=== PATIENT | male | born 1955 | race Caucasian/White ===

== ENCOUNTER → 2018-01-31 08:01 | Outpatient (CLI) | payer OTHER, SELFPAY ==
[2018-01-31 12:04] LABS: Absolute Lymphocyte Count 2.43 X10^3/ul (0.83-4.51); Absolute Neutrophil Count 2.2 X10^3/uL (2.0-7.7); Basophil# 0.01 X10^3/uL; Basophil% 0.2 % (0-1); Eosinophil# 0.07 X10^3/uL; Eosinophils% 1.4 % (0-5); Hematocrit 42.7 % (40-54); Hemoglobin 14.1 g/dl (13.0-16.5); Lymphocyte # 2.43 X10^3/ul (4.0); Lymphocyte % 47.3 % (19-41); Mean Corpuscular Volume 90.9 fL (80-94); Mean Platelet Vol. 9.2 fl (6.2-12.0); Monocyte# 0.42 X10^3/uL; Monocyte% 8.2 % (0-10); Neutrophil % 42.7 % (47-70); POSITIVE COUNT NO; POSITIVE DIFFERENTIAL NO; POSITIVE MORPHOLOGY NO; Platelet Count 200 K/mm3 (150-450); RBC Distribution Width SD 46.6 fl (35.1-43.9); White Blood Count 5.1 K/mm3 (4.4-11.0)
[2018-01-31 12:20] LABS: Prothrombin Time (Protime)PT. 22.8 SECONDS (11.7-14.9)
[2018-01-31 12:29] LABS: ALB/GLOB Ratio 1.1 RATIO (0.9-2.4); AST(SGOT) 23 U/L (15-37); Alanine Aminotransfer ALT/SGPT 33 U/L (16-61); Alkaline Phosphatase 59 U/L (45-117); Anion Gap 7 (5-15); BUN 13 mg/dL (7-18); BUN/Creat Ratio 14.4 RATIO (10-20); Calcium,Total 8.8 mg/dL (8.5-10.1); Chloride 106 mmol/L (98-107); Cholesterol 187 mg/dL (200); EST Glomerular Filtration Rate 90 mL/min (>60); Est Glom Filt Rate - Afr Amer 109 mL/min (>60); Globulin 3.8 g/dL (2.2-4.2); Glucose 91 mg/dL (74-106); High Density Lipoprotein 51 mg/dL; Potassium 4.2 mmol/L (3.5-5.1); Protein, Total 7.8 g/dL (6.4-8.2); Sodium Level 140 mmol/L (136-145); Triglycerides 104 mg/dL; Very Low Density Lipoprotein 21 mg/dL (5-40)
== END ==
PROVIDERS: Family Provider Family Medicine; PCP Family Medicine; Visit Provider Family Medicine
DX: M77.00 Medial epicondylitis, unspecified elbow (principal); Z51.81 Encounter for therapeutic drug level monitoring; Z86.73 Personal history of transient ischemic attack (TIA), and cerebral infarction without residual deficits
CPT/HCPCS: 36415; 80053; 80061; 85025; 85610

== ENCOUNTER → 2018-04-05 09:47 | Outpatient (CLI) | payer OTHER, SELFPAY ==
--- NOTE | 2018-04-03 09:31 | LES_PTH ---
PATIENT: ALMA ROSA CRUZ LOC: [facility] U#:[id number] AGE/SX: 70/M ROOM: RE04/05/[address]: Dr. Kun Pulido DO : 1955 BED: DIS: SPEC #: [id number] RECD: 04/05/18 12:19 STATUS: PEBBLES RADHA #: [id number] LORI: 04/03/18 09:[address]: Kun Pulido DEPT: SURGICAL PATHOLOGY RECD BY: Chong Mccarthy Tissues: Skin, NOS Procedures: Surgery Specimen Level IV HEADER OPERATION: Punch biopsy PRE-OP DIAGNOSIS: Large flat pigmented lesion TISSUE SUBMITTED: 3 mm punch biopsy MICROSCOPIC DIAGNOSIS Right leg, punch biopsy: Consistent with seborrheic keratosis. Negative for melanocytic lesion. SJ:vilma 04/06/18 COMMENT Clinical correlation and appropriate follow up are necessary. MICROSCOPIC DESCRIPTION Slides are reviewed. GROSS DESCRIPTION Received in fixative is one container labeled with the patient's name and designated biopsy right leg. The specimen consists of a punch biopsy of patrick-white skin measuring 0.2 cm in diameter and 0.2 cm in length. The specimen is totally submitted in one cassette. / SJ:vilma 04/05/18 TC:1 CPT: 17230
[2018-04-05 12:25] LABS: Color, Urine Yellow (Yellow); Glucose, Dipstick Normal (Normal); Ketone-Dipstick Negative (Negative); Leukocyte Esterase-Dipstick Negative /ul (Negative); Nitrite-Dipstick Negative (Negative); Occult Blood-Urine Negative /ul (Negative); Protein-Dipstick Negative (Negative); Specific Gravity, Urine 1.005 (1.002-1.030); Urine Bilirubin Dipstick Negative (Negative); Urine Clarity Sl. Cloudy (Clear); Urine Urobilinogen Normal (Normal)
[2018-04-05 12:34] LABS: Erythrocyte Sedimentation Rate 7 mm/hr (0-20)
[2018-04-05 12:37] LABS: CPK Total, Creatine Kinase 144 U/L (39-308); CRP < 2.90 mg/L (0.0-3.0)
[2018-04-10 11:36] LABS: Testosterone, % Free 2.71 % (1.50-4.20); Testosterone, Free 11.79 ng/dL (5.00-21.00)
[2018-04-10 15:28] LABS: Hep C Antibodies <0.1 s/co ratio (0.0-0.9); Testosterone, Total 435 ng/dL (264-916)
== END ==
PROVIDERS: Visit Provider Family Medicine
DX: M79.1 Myalgia (principal); R30.0 Dysuria; R53.83 Other fatigue; L98.9 Disorder of the skin and subcutaneous tissue, unspecified
CPT/HCPCS: 36415; 81002; 82550; 84402; 84403; 85652; 86140; 86803; 87086; 87088; 88305

== ENCOUNTER 2018-07-13 06:26 | Day surgery (SDC) | payer OTHER, SELFPAY ==
[2018-07-13] VITALS (7 sets, daily range): BP systolic 103–136; BP diastolic 69–93; PULSE 61–81; RESP 16; TEMP 36–36.4; O2SAT 94–100; BMI 26.3
--- NOTE | 2018-07-13 07:47 | PCM.HP.STD ---
Problem List (1) Screening for intestinal cancer Status: Acute History of Present Illness Date of Admission: 07/13/18 The patient is a 63 year old M screening for intestinal cancer. He denies any abdominal pain. No bright red blood per rectum or melena. His previous colonoscopy was 14 years prior. He has no family history of colon cancer. 20 years ago he had a stroke. Claims he has been on Coumadin ever since. He has held his Coumadin now for 5 days. Past Medical History Allergies No Known Allergies Allergy (Verified 07/11/18 09:44) Home Medications: Ambulatory Orders Medication Instructions Recorded Temazepam [Restoril] 30 mg PO QHS 07/11/18 Warfarin Sodium [Coumadin] 8 mg PO MOWEFR 07/11/18 Warfarin [Coumadin ([facility])] 6 mg PO SUTUTHSA 07/11/18 traZODone [Desyrel] 50 mg PO QHS 07/11/18 Smoking Status: Never smoker Review of Systems Constitutional: Denies: Anorexia HEENT: Denies: Difficulty Swallowing Cardiovascular: Denies: Chest Pain Respiratory: Denies: Cough Gastrointestinal: Denies: Abdominal Pain, Hematochezia, Melena Psychiatric: Denies: Anxiety Endocrine: Denies: Change in Body Habitus VTE Information - Inpt Only VTE Present on Admission: No Patient Problems: Active and Suspected Problems Screening for intestinal cancer (Acute) - Physical Exam General: Alert, Oriented x3, Cooperative, No apparent distress HEENT: Atraumatic Oral: Moist Mucosa Neck: Supple Lungs: Clear to auscultation Cardiovascular: Regular rate, Regular Rhythm Abdomen: Bowel Sounds Present, Soft, Non Tender Extremities: No Calf Tenderness Skin: No rashes Musculoskeletal: No Tenderness to Palpation of Joints or Extremities Neurological: Cranial nerves II-XII grossly intact Psych/Mental Status: Normal Affect Vital Signs Temp Pulse Resp BP Pulse Ox 97.2 F L 78 16 125/84 H 96 07/13/18 06:47 07/13/18 06:47 07/13/18 06:47 07/13/18 06:47 07/13/18 06:47 Oxygen Delivery Method Room Air Weight: 167 lb 15.876 oz Body Mass Index (BMI) 26.3 Assessment/Plan All Active Problems Screening for intestinal cancer (Acute) Plan to proceed with a screening colonoscopy. The patient is aware of the technique, benefits, risks and alternatives. He has had an opportunity to ask and have questions answered. We will proceed at his discretion. Douglas Stern M.D., F.A.C.S.
--- NOTE | 2018-07-13 08:13 | OP.ENDO_ITS ---
Patient Name: Kris Pelitez Procedure Date: 07/13/2018 7:42 AM Date of : 1955 Age: 63 Procedure: Colonoscopy Indications: Screening for colorectal malignant neoplasm Providers: Douglas Stern MD Referring MD: Douglas Stern MD Medicines: Midazolam 3.5 mg IV, Meperidine 75 mg IV Patient Profile: This is a 63 year old male. Last Colonoscopy: more than 10 years ago. Complications: No immediate complications. Procedure: Pre-Anesthesia Assessment: - Prior to the procedure, a History and Physical was performed, and patient medications and allergies were reviewed. The patient's tolerance of previous anesthesia was also reviewed. The risks and benefits of the procedure and the sedation options and risks were discussed with the patient. All questions were answered, and informed consent was obtained. Prior Anticoagulants: The patient has taken Coumadin (warfarin), last dose was day of procedure. ASA Grade Assessment: II - A patient with mild systemic disease. After reviewing the risks and benefits, the patient was deemed in satisfactory condition to undergo the procedure. After I obtained informed consent, the scope was passed under direct vision. Throughout the procedure, the patient's blood pressure, pulse, and oxygen saturations were monitored continuously. The pediatric colonoscope was introduced through the anus and advanced to the cecum, identified by appendiceal orifice and ileocecal valve. The colonoscopy was performed without difficulty. The patient tolerated the procedure well. The quality of the bowel preparation was good. The ileocecal valve was photographed. Moderate Sedation: Moderate (conscious) sedation was personally administered by the endoscopist. The following parameters were monitored: oxygen saturation, heart rate, blood pressure, and response to care. Total physician intraservice time was 15 minutes. Scope In: 7:53:43 AM Scope Withdrawal Time 0 hours 7 minutes 6 seconds Scope Out: 8:06:42 AM Total Procedure Duration Time 0 hours 12 minutes 59 seconds Findings: The perianal and digital rectal examinations were normal. The colon (entire examined portion) appeared normal. Impression: - The entire examined colon is normal. - No specimens collected. Recommendation: - Discharge patient to home. - Resume previous diet. - Continue present medications. - Resume Coumadin (warfarin) at prior dose today. - Repeat colonoscopy in 10 years for screening purposes. Procedure Code(s): --- Professional --- 20631, Colonoscopy, flexible; diagnostic, including collection of specimen(s) by brushing or washing, when performed (separate procedure) 19831, 59, Moderate sedation services provided by the same physician or other qualified health career specialist performing the diagnostic or therapeutic service that the sedation supports, requiring the presence of an independent trained observer to assist in the monitoring of the patient's level of consciousness and physiological status; initial 15 minutes of intraservice time, patient age 5 years or older Diagnosis Code(s): --- Professional --- Z12.11, Encounter for screening for malignant neoplasm of colon CPT copyright 2017 [employer]. All rights reserved. The codes documented in this report are preliminary and upon ammonium hydroxide operator review may be revised to meet current compliance requirements. Douglas Stern MD 07/13/2018 8:12:42 AM This report has been signed electronically. Number of Addenda: 0 Note Initiated On: 07/13/2018 7:42 AM
== END 2018-07-13 09:17 | disposition home or self-care (01) ==
LOC: EN 06:27 → AC 06:29
PROVIDERS: Family Provider Family Medicine; PCP Family Medicine; Referring Provider Surgery; Visit Provider Surgery
PROC: 0DJD8ZZ Inspection of Lower Intestinal Tract, Via Natural or Artificial Opening Endoscopic (ICD-10-PCS; CPT 45378; principal; 2018-07-13 07:25)
DX: Z12.11 Encounter for screening for malignant neoplasm of colon (principal); Z86.73 Personal history of transient ischemic attack (TIA), and cerebral infarction without residual deficits; Z79.01 Long term (current) use of anticoagulants
CPT/HCPCS: 45378; 99152; 99153; J7120

== ENCOUNTER 2020-01-03 07:15 | Outpatient (RCR) | payer MEDICARE, OTHER, SELFPAY ==
[2018-07-13 06:47] VITALS: BMI 26.3
[2019-12-20 07:50] LABS: Prothrombin Time Fingerstick 22.1 SEC (11.9-14.4)
[2020-01-03 08:37] LABS: Prothrombin Time (Protime)PT. 22.1 SECONDS (11.7-14.9)
== END 2020-01-16 18:00 | disposition home or self-care (01) ==
LOC: LAB 07:15
PROVIDERS: PCP Family Medicine; Referring Provider Family Medicine; Visit Provider Family Medicine
DX: Z86.73 Personal history of transient ischemic attack (TIA), and cerebral infarction without residual deficits (principal)
CPT/HCPCS: 36415; 36416; 85610

== ENCOUNTER 2020-02-03 09:10 | Outpatient (RCR) | payer MEDICARE, OTHER, SELFPAY ==
[2018-07-13 06:47] VITALS: BMI 26.3
[2020-02-03 10:13] LABS: Prothrombin Time (Protime)PT. 22.6 SECONDS (11.7-14.9)
== END 2020-02-03 18:00 | disposition home or self-care (01) ==
LOC: LAB 09:10
PROVIDERS: PCP Family Medicine; Referring Provider Family Medicine; Visit Provider Family Medicine
DX: Z86.73 Personal history of transient ischemic attack (TIA), and cerebral infarction without residual deficits (principal)
CPT/HCPCS: 36415; 85610

== ENCOUNTER 2020-03-09 10:03 | Outpatient (RCR) | payer MEDICARE, OTHER, SELFPAY ==
[2018-07-13 06:47] VITALS: BMI 26.3
[2020-03-09 12:40] LABS: International Normalized Ratio 1.9; Prothrombin Time (Protime)PT. 21.3 SECONDS (11.7-14.9)
== END 2020-03-09 18:00 | disposition home or self-care (01) ==
LOC: LAB 10:03
PROVIDERS: PCP Family Medicine; Referring Provider Family Medicine; Visit Provider Family Medicine
DX: Z86.73 Personal history of transient ischemic attack (TIA), and cerebral infarction without residual deficits (principal)
CPT/HCPCS: 36415; 85610

== ENCOUNTER 2020-04-06 09:12 | Outpatient (RCR) | payer MEDICARE, OTHER, SELFPAY ==
[2018-07-13 06:47] VITALS: BMI 26.3
[2020-04-06 10:12] LABS: International Normalized Ratio 1.8; Prothrombin Time (Protime)PT. 20.8 SECONDS (11.7-14.9)
== END 2020-04-06 18:00 | disposition home or self-care (01) ==
LOC: MTLAB 09:12
PROVIDERS: PCP Family Medicine; Referring Provider Family Medicine; Visit Provider Family Medicine
DX: Z86.73 Personal history of transient ischemic attack (TIA), and cerebral infarction without residual deficits (principal)
CPT/HCPCS: 36415; 85610

== ENCOUNTER → 2020-04-30 08:44 | Outpatient (CLI) | payer MEDICARE, OTHER, SELFPAY ==
[2020-04-30 12:34] LABS: Absolute Lymphocyte Count 2.15 X10^3/uL (0.83-4.51); Absolute Neutrophil Count 2.7 X10^3/uL (2.0-7.7); Basophil# 0.03 X10^3/uL; Basophil% 0.5 % (0-1); Eosinophil# 0.08 X10^3/uL; Eosinophils% 1.4 % (0-5); Hematocrit 42.7 % (40-54); Hemoglobin 13.9 g/dL (13.0-16.5); Lymphocyte # 2.15 X10^3/ul (4.0); Lymphocyte % 38.7 % (19-41); Mean Corp Hgb Conc 32.6 g/dL (32-36); Mean Platelet Vol. 9.7 fl (6.2-12.0); Monocyte# 0.53 X10^3/uL; Monocyte% 9.5 % (0-10); NRBC Flagged by Analyzer 0 % (0-5); Neutrophil # 2.74 X10^3/uL (2.7-7.7); Neutrophil % 49.5 % (47-70); Platelet Count 219 K/mm3 (150-450); RBC Distribution Width CV 13.4 % (11.6-14.6); RBC Distribution Width SD 45.6 fl (35.1-43.9); Red Blood Count 4.64 M/mm3 (4.6-6.2); White Blood Count 5.6 K/mm3 (4.4-11.0)
[2020-04-30 12:38] LABS: International Normalized Ratio 2.3
[2020-04-30 12:47] LABS: AST(SGOT) 15 U/L (15-37); Alanine Aminotransfer ALT/SGPT 23 U/L (16-61); Albumin, Serum 3.8 g/dL (3.2-5.0); Alkaline Phosphatase 70 U/L (45-117); Anion Gap 4 (5-15); BUN 12 mg/dL (7-18); BUN/Creat Ratio 13.5 RATIO (10-20); Calcium,Total 9.2 mg/dL (8.5-10.1); Chloride 108 mmol/L (98-107); Cholesterol 175 mg/dL (200); Creatinine, Serum 0.89 mg/dL (0.70-1.30); EST Glomerular Filtration Rate 91 mL/min (>60); Est Glom Filt Rate - Afr Amer 110 mL/min (>60); Globulin 3.8 g/dL (2.2-4.2); Glucose 94 mg/dL (74-106); High Density Lipoprotein 52 mg/dL; PSA,Total - Annual Screen 0.46 ng/mL (0.00-4.00); Potassium 4.6 mmol/L (3.5-5.1); Protein, Total 7.6 g/dL (6.4-8.2); Sodium Level 140 mmol/L (136-145); Triglycerides 97 mg/dL; Very Low Density Lipoprotein 19 mg/dL (5-40)
== END ==
PROVIDERS: PCP Family Medicine; Visit Provider Family Medicine
DX: I67.9 Cerebrovascular disease, unspecified (principal); Z51.81 Encounter for therapeutic drug level monitoring; Z79.01 Long term (current) use of anticoagulants; E78.5 Hyperlipidemia, unspecified; Z12.5 Encounter for screening for malignant neoplasm of prostate
CPT/HCPCS: 36415; 80053; 80061; 84153; 85025; 85610; G0103

== ENCOUNTER → 2020-11-23 09:32 | Outpatient (CLI) | payer MEDICARE, OTHER, SELFPAY ==
[2020-11-23 12:18] LABS: International Normalized Ratio 2.2; Prothrombin Time (Protime)PT. 24.2 SECONDS (11.7-14.9)
== END ==
PROVIDERS: PCP Family Medicine; Visit Provider Family Medicine
DX: Z86.73 Personal history of transient ischemic attack (TIA), and cerebral infarction without residual deficits (principal); Z51.81 Encounter for therapeutic drug level monitoring; Z79.01 Long term (current) use of anticoagulants
CPT/HCPCS: 85610

== ENCOUNTER → 2020-11-24 | Outpatient (CLI) | payer MEDICARE, OTHER, SELFPAY ==
[2018-07-13 06:47] VITALS: BMI 26.3
== END | disposition home or self-care (01) ==
LOC: LABSPEC 16:15
PROVIDERS: PCP Family Medicine; Visit Provider Family Medicine
DX: U07.1 COVID-19 (principal)
CPT/HCPCS: 87635; U0005; U0003

== ENCOUNTER 2021-09-07 14:24 | Outpatient (RCR) | payer MEDICARE, OTHER, SELFPAY ==
[2021-09-07 14:41] LABS: Prothrombin Time Fingerstick 33.2 SEC (11.9-14.4)
== END 2021-09-18 18:00 | disposition home or self-care (01) ==
LOC: MTLAB 14:24
PROVIDERS: PCP Family Medicine; Referring Provider Family Medicine; Visit Provider Family Medicine
DX: Z86.73 Personal history of transient ischemic attack (TIA), and cerebral infarction without residual deficits (principal)
CPT/HCPCS: 36416; 85610

== ENCOUNTER → 2022-01-11 | Outpatient (CLI) | payer MEDICARE, OTHER, SELFPAY | END | disposition home or self-care (01) | PROVIDERS: PCP Family Medicine; Visit Provider Family Medicine | DX: Z20.828 Contact with and (suspected) exposure to other viral communicable diseases (principal) | CPT/HCPCS: 87635; U0003; U0005 ==